=== PATIENT | male | born 2005 | race Caucasian/White ===

== ENCOUNTER 2024-09-13 11:37 | Emergency (ER) | payer OTHER ==
[2024-09-13] MEDS: Diphtheria,Pertussis(Acell),Tetanus Vaccine 0.5 ML Syringe IM ONE (13:01)
[2024-09-13] MEDS: Lidocaine/Epineph/Tetracaine 3 ML Syringe TOP ONE (13:02)
== END 2024-09-13 14:21 | disposition home or self-care (01) ==
LOC: JP.ED 11:37
DX: S41.112A Laceration without foreign body of left upper arm, initial encounter (principal); Z23 Encounter for immunization; W21.00XA Struck by hit or thrown ball, unspecified type, initial encounter
CPT/HCPCS: 12002; 90471; 90715; 99282; A9270